=== PATIENT | male | born 1960 | race Caucasian/White ===

== ENCOUNTER 2021-09-24 18:57 | Outpatient (CLI) | payer OTHER | END 2021-09-24 18:58 | disposition home or self-care (01) | LOC: BURRAD 18:57 | PROVIDERS: ATTEND Registered Nurse Community Health | DX: S61.432A Puncture wound without foreign body of left hand, initial encounter (principal); M53.3 Sacrococcygeal disorders, not elsewhere classified; M54.6 Pain in thoracic spine; R07.81 Pleurodynia | CPT/HCPCS: 71046; 72072; 72100; 72220 ==